=== PATIENT | male | born 1970 | race Caucasian/White ===

== ENCOUNTER 2016-05-06 | Emergency (ER) | payer SELFPAY ==
--- NOTE | 2016-05-06 18:08 | ED ---
General Adult HPI - General Chief complaint: Dental/Oral Stated complaint: Dental pain Time Seen by Provider: 05/06/16 17:50 Source: patient, RN notes reviewed Mode of arrival: ambulatory Limitations: no limitations - History of Present Illness Initial comments: This is a 46-year-old male presents with left-sided dental pain 2 days. Patient states he had mild swelling yesterday but this has greatly increased today. Patient denies any fever or chills. Patient denies noticing any purulent drainage or foul odor. Patient states he does have a bad taste in his mouth. Patient states he called his dentist but they were unable to get him in until tomorrow. Patient also complains of otalgia. Patient denies any nausea/ vomiting or diarrhea. Patient denies any recent shortness breath, chest pain, abdominal pain, back pain, numbness, tingling, hematuria, headache, or visual changes, or any other complaints. - Related Data Previous Rx's Medication Instructions Recorded Amoxicillin 1,000 mg PO Q8H 7 Days 05/06/16 Amoxicillin 500 mg PO Q12HR 7 Days 05/06/16 Allergies Allergy/AdvReac Type Severity Reaction Status Date / Time codeine Allergy Unknown Verified 05/06/16 17:40 Review of Systems ROS Statement: Those systems with pertinent positive or pertinent negative responses have been documented in the HPI. ROS Other: All systems not noted in ROS Statement are negative. Past Medical History Past Medical History: CVA/TIA History of Any Multi-Drug Resistant Organisms: None Reported Past Surgical History: Orthopedic Surgery Past Psychological History: No Psychological Hx Reported Smoking Status: Current every day smoker Past Alcohol Use History: None Reported Past Drug Use History: None Reported General Exam - General Exam Comments Initial Comments: General: The patient is awake and alert, in no distress, and does not appear acutely ill. Eye: Pupils are equal, round and reactive to light, extra-ocular movements are intact. No nystagmus. There is normal conjunctiva bilaterally. No signs of icterus. Ears: TMs are erythematous and bulging bilaterally. No external ear canals. Nose: Nasal turbinates pink and moist. Mouth and throat: There are multiple areas of tooth decay especially to teeth # 18-21 approximately. There is white purulent drainage from this area along with localized erythema. Patient has external facial swelling along the left lower jawline with mild erythema and tenderness to palpation. There are moist mucous membranes and no oral lesions. Neck: Submandibular and anterior cervical chain lymphadenopathy present and tender. The neck is supple, there is no JVD. Cardiovascular: There is a regular rate and rhythm. No murmur, rub or gallop is appreciated. Respiratory: Lungs are clear to auscultation, respirations are non-labored, breath sounds are equal. No wheezes, stridor, rales, or rhonchi. Musculoskeletal: Normal ROM, no tenderness. Strength 5/5. Sensation intact. Radial pulses equal bilaterally 2+. Neurological: A&O x 3. CN II-XII intact, There are no obvious motor or sensory deficits. Coordination appears grossly intact. Speech is normal. Skin: External facial swelling to the lower jawline on the left side. Skin is warm and dry and no rashes or lesions are noted. Psychiatric: Cooperative, appropriate mood & affect, normal judgment. Limitations: no limitations Course Vital Signs 05/06/16 05/06/16 17:40 18:27 Temperature 98.2 F 97.1 F L Pulse Rate 108 H 98 Respiratory 20 16 Rate Blood Pressure 114/75 125/81 O2 Sat by Pulse 98 99 Oximetry Medical Decision Making - Medical Decision Making This is a 46-year-old male with left-sided pain 2 days. On physical exam there are multiple areas of tooth decay especially to teeth #18-21 approximately. There is white purulent drainage from this area along with localized erythema. Patient has external facial swelling along the left lower jawline with mild erythema and tenderness to palpation. There are moist mucous membranes and no oral lesions. TMs are bulging and erythematous bilaterally. Discussed that patient will be started on a course of antibiotics. Discussed that patient could receive a prescription for [place] but patient refused this stating he would like to use Tylenol and Motrin. Discussed that patient should follow-up with his dentist as soon as possible. Discussed return parameters. Patient is afebrile in the EC. Discussed that patient should follow up with PCP in one to 2 days or return to the EC for any worsening symptoms or for any further concerns. Patient was receptive to this plan and patient will be discharged home. I discussed his case with attending physician Dr. Wilkinson who also examined the patient and agrees the plan as stated above. Disposition Clinical Impression: Dental abscess, Otitis media Disposition: HOME SELF-CARE Condition: Good Instructions: Dental Abscess (ED) Additional Instructions: Please finish entire course of antibiotics. Please use [id number] Tylenol and Motrin as needed for any pain. Please follow-up with your dentist as soon as possible. Please follow-up with PCP in one to 2 days or return to the EC for any worsening symptoms or for any further concerns. Prescriptions: Amoxicillin 500 mg PO Q12HR 7 Days Amoxicillin 1,000 mg PO Q8H 7 Days Referrals: None,Stated [Primary Care Provider] - 1-2 days Time of Disposition: 19:02
== END 2016-05-06 19:10 | disposition home or self-care (01) ==
CPT/HCPCS: 99282

== ENCOUNTER 2016-08-06 18:45 | Emergency (ER) | payer SELFPAY ==
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
[2016-08-06 20:37] VITALS: BP 138/78; PULSE 87; RESP 18; TEMP 98
== END 2016-08-06 20:36 | disposition home or self-care (01) ==
LOC: EC 18:45
DX: R42 Dizziness and giddiness (principal); R11.0 Nausea; F17.200 Nicotine dependence, unspecified, uncomplicated; Z88.5 Allergy status to narcotic agent; V89.2XXA Person injured in unspecified motor-vehicle accident, traffic, initial encounter
CPT/HCPCS: 70450; 93005; 99284

== ENCOUNTER 2017-01-28 18:38 | Emergency (ER) | payer SELFPAY ==
[2017-01-28 19:11] VITALS: BP 115/72; PULSE 90; RESP 20; TEMP 98.1
--- NOTE | 2017-01-28 20:04 | ED ---
General Adult HPI - General Chief complaint: Upper Respiratory Infection Stated complaint: COUGH X 4 DAYS Time Seen by Provider: 01/28/17 19:55 Source: patient, RN notes reviewed Mode of arrival: ambulatory Limitations: no limitations - History of Present Illness Initial comments: Patient 46-year-old male who presents emergency room today with a chief complaint of cough congestion over the last 5 days. Denies any sputum production. Patient denies any other complaints at this time. Patient denies any recent fever, chills, shortness of breath, chest pain, back pain, abdominal pain, nausea or vomiting, numbness or tingling, dysuria or hematuria, constipation or diarrhea, headaches or visual changes, or any other complaints. - Related Data Previous Rx's Medication Instructions Recorded Albuterol Inhaler [Ventolin Hfa 1 - 2 puff INHALATION Q4-6H PRN #1 01/28/17 Inhaler] inhaler Azithromycin [Zithromax Z-pack] 0 mg PO DIRECTED #6 tab 01/28/17 predniSONE 60 mg PO DAILY 5 Days 01/28/17 Allergies Allergy/AdvReac Type Severity Reaction Status Date / Time codeine AdvReac Headache Verified 01/28/17 19:11 Review of Systems ROS Statement: Those systems with pertinent positive or pertinent negative responses have been documented in the HPI. ROS Other: All systems not noted in ROS Statement are negative. Past Medical History Past Medical History: CVA/TIA History of Any Multi-Drug Resistant Organisms: None Reported Past Surgical History: Orthopedic Surgery Past Psychological History: No Psychological Hx Reported Smoking Status: Current every day smoker Past Alcohol Use History: None Reported Past Drug Use History: None Reported General Exam - General Exam Comments Initial Comments: General: The patient is awake and alert, in no distress, and does not appear acutely ill. Eye: Pupils are equal, round and reactive to light, extra-ocular movements are intact. No nystagmus. There is normal conjunctiva bilaterally. No signs of icterus. Ears, nose, mouth and throat: There are moist mucous membranes and no oral lesions. Neck: The neck is supple, there is no tenderness or JVD. Cardiovascular: There is a regular rate and rhythm. No murmur, rub or gallop is appreciated. Respiratory: Lungs are clear to auscultation, respirations are non-labored, breath sounds are equal. No wheezes, stridor, rales, or rhonchi. Musculoskeletal: Normal ROM, no tenderness. Strength 5/5. Sensation intact. Pulses equal bilaterally 2+. Neurological: A&O x 3. CN II-XII intact, There are no obvious motor or sensory deficits. Coordination appears grossly intact. Speech is normal. Skin: Skin is warm and dry and no rashes or lesions are noted. Psychiatric: Cooperative, appropriate mood & affect, normal judgment. Limitations: no limitations Course Vital Signs 01/28/17 19:10 Temperature 98.1 F Pulse Rate 90 Respiratory 20 Rate Blood Pressure 115/72 O2 Sat by Pulse 98 Oximetry Medical Decision Making - Medical Decision Making Chest x-ray negative shows no signs of pneumonia. Patient will be treated for bronchitis infection. Disposition Clinical Impression: Acute bronchitis Disposition: HOME SELF-CARE Condition: Good Instructions: Acute Bronchitis (ED) Additional Instructions: Please use medication as discussed. Please follow-up with family doctor in the next 2 days of symptoms have not improved. Please return to emergency room if the symptoms increase or worsen or for any other concerns. Prescriptions: Albuterol Inhaler [Ventolin Hfa Inhaler] 1 - 2 puff INHALATION Q4-6H PRN #1 inhaler PRN Reason: Cough Azithromycin [Zithromax Z-pack] 0 mg PO DIRECTED #6 tab predniSONE 60 mg PO DAILY 5 Days Referrals: None,Stated [Primary Care Provider] - 1-2 days Karen Tate MD [REFERRING] - 1-2 days Time of Disposition: 20:34
--- NOTE | 2017-01-28 20:22 | XR ---
EXAMINATION TYPE: XR chest 2V DATE OF EXAM: 01/28/2017 COMPARISON: 07/18/08 HISTORY: Chest pain TECHNIQUE: Frontal and lateral views of the chest are obtained. FINDINGS: There is no focal air space opacity. No evidence for pneumothorax. No pleural effusion. The cardiac silhouette size is within normal limits. The osseous structures are grossly intact. IMPRESSION: 1. No acute cardiopulmonary process.
== END 2017-01-28 20:51 | disposition home or self-care (01) ==
LOC: EC 18:38
DX: J20.9 Acute bronchitis, unspecified (principal); F17.200 Nicotine dependence, unspecified, uncomplicated; Z88.5 Allergy status to narcotic agent
CPT/HCPCS: 71020; 99283

== ENCOUNTER 2018-12-28 18:36 | Emergency (ER) | payer OTHER ==
[2018-12-28 18:42] VITALS: TEMP 98.6
[2018-12-28 20:30] LABS: Appearance,Urine Clear (Clear); Bilirubin,Urine Negative (Negative); Blood,Urine Negative (Negative); Color,Urine Yellow; Glucose,Urine (UA) Negative (Negative); Ketones,Urine Negative (Negative); Leukocyte Esterase,Urine Small (Negative); Mucus,Urine Moderate /hpf; Nitrite,Urine Negative (Negative); Protein,Urine Trace (Negative); RBC,Urine <1 /hpf (0-5); Specific Gravity,Urine 1.031 (1.001-1.035); Squamous Epithelial Cell,Urine <1 /hpf (0-4); WBC,Urine 27 /hpf (0-5)
[2018-12-28 20:35] LABS: Basophils # (A) 0.1 k/uL (0-0.2); Basophils % (A) 1 %; Eosinophils # (A) 0.3 k/uL (0-0.7); Eosinophils % (A) 2 %; HCT 45.3 % (39.0-53.0); HGB 15.8 gm/dL (13.0-17.5); Lymphocytes # (A) 2.2 k/uL (1.0-4.8); Lymphocytes % (A) 15 %; MCH 32.5 pg (25.0-35.0); MCV 92.8 fL (80.0-100.0); Mean Platelet Volume 7.3; Monocytes # (A) 1.2 k/uL (0-1.0); Monocytes % (A) 8 %; Neutrophils # (A) 10.7 k/uL (1.3-7.7); Neutrophils % (A) 74 %; Platelet Count 299 k/uL (150-450); RBC 4.88 m/uL (4.30-5.90); RDW 14.4 % (11.5-15.5); WBC 14.6 k/uL (3.8-10.6)
[2018-12-28 20:36] LABS: ALT 62 U/L (21-72); AST 37 U/L (17-59); African American GFR (CKD) >90 (>60 ml/min/1.73 sqM); Albumin 3.4 g/dL (3.5-5.0); Alkaline Phosphatase 81 U/L (38-126); Anion Gap 8 mmol/L; Blood Urea Nitrogen 10 mg/dL (9-20); Calcium 8.8 mg/dL (8.4-10.2); Carbon Dioxide 24 mmol/L (22-30); Chloride 107 mmol/L (98-107); Glucose 106 mg/dL (74-99); Potassium 3.8 mmol/L (3.5-5.1); Sodium 139 mmol/L (137-145); Total Bilirubin 0.5 mg/dL (0.2-1.3); Total Protein 5.7 g/dL (6.3-8.2)
--- NOTE | 2018-12-28 20:56 | XR ---
EXAMINATION: XR chest 2V DATE AND TIME: 12/28/2018 8:00 PM CLINICAL INDICATION: PHH; Cough/pain TECHNIQUE: Departmental protocol COMPARISON: 01/28/2017 FINDINGS: The left lower lobe shows partial airlessness in its axial compartment consistent with atelectasis an d/or concurrent bronchopneumonia. This ill-defined string-like added opacity within the left lower lo be was not seen on the prior study. Lungs are otherwise clear bilaterally. The pleural spaces are negative. The cardiac silhouette is not enlarged. The remainder of the mediastinal silhouette is unremarkable. The skeletal structures and soft tissues are negative for acute findings. IMPRESSION: PARTIAL LEFT LOWER LOBE AIRLESSNESS DISCUSSED. Recommend 6 week follow-up PA and lateral chest rad iograph to prove resolution of the findings.
[2018-12-28] MEDS ORDERED: AMOXIC-POT CLAV 875-125MG 1 EACH TAB PO STA (21:41)
--- NOTE | 2018-12-28 21:45 | ED ---
URI HPI - General Chief Complaint: Upper Respiratory Infection Stated Complaint: Cough,yellow eyes Time Seen by Provider: 12/28/18 19:07 Source: patient, family Mode of arrival: ambulatory Limitations: no limitations - History of Present Illness Initial Comments: The patient is a 48-year-old male presents emergency Department with reported cough for the past week. Significant other is at bedside. Patient reports that he has had a cough with green sputum. Denies any sick contacts or recent travel. Denies any fevers or chills. Does admit to chest wall pain from persistent coughing. He denies a history of COPD or asthma. He has not taken any medications at home for her symptoms. He denies any ear pain or sore throat. No neck pain or stiffness. Denies any chest pain. Does admit to feeling mildly short of breath. No abdominal pain or changes in his bowel or bladder habits. He denies hemoptysis. Significant other does report that the patient's eyes have appeared yellow the past couple of days. No history of liver failure. Patient reports to dark-colored urine. Denies a colored stools. No abdominal distention or bloating. Denies a history of alcohol use. No excessive Tylenol use. No history of similar in the past. There are no other alleviating, precipitating or modifying factors - Related Data Previous Rx's Medication Instructions Recorded Amoxicillin/Potassium Clav 1 tab PO Q12HR #20 tab 12/28/18 [Augmentin 875-125 Tablet] Allergies Allergy/AdvReac Type Severity Reaction Status Date / Time codeine AdvReac Headache Verified 12/28/18 19:31 Review of Systems ROS Statement: Those systems with pertinent positive or pertinent negative responses have been documented in the HPI. ROS Other: All systems not noted in ROS Statement are negative. Past Medical History Past Medical History: CVA/TIA History of Any Multi-Drug Resistant Organisms: None Reported Past Surgical History: Orthopedic Surgery Past Psychological History: No Psychological Hx Reported Smoking Status: Current every day smoker Past Alcohol Use History: None Reported Past Drug Use History: None Reported General Exam Limitations: no limitations Course Vital Signs 12/28/18 12/28/18 18:38 22:26 Temperature 98.6 F Pulse Rate 102 H 79 Respiratory 18 16 Rate Blood Pressure 111/74 110/79 O2 Sat by Pulse 97 95 Oximetry Medical Decision Making - Medical Decision Making Upon arrival the patient is placed into room 3. 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 A 12-lead EKG is performed with the patient. They're history of physical exam is performed. Laboratory studies were conducted and the patient was sent for chest x-ray. Review of the lab results revealed a mild leukocytosis. Chest x-ray demonstrates a left lower lobe pneumonia. I did discuss results the patient. I did recommend a DuoNeb breathing treatment however the patient states that he is ALLERGIC to albuterol inhalers. I therefore held off on a nebulizer treatment. I did recommend treatment for community-acquired pneumonia for which patient did agree. He is given a dose of Augmentin in the emergency department. He'll be discharged home with a prescription for Augmentin. He is follow-up with his primary care physician in 2-4 days. If he has any new or worsening symptoms she should return to the emergency room. The patient was in agreement with the treatment plan and he is discharged home in stable condition - Lab Data Result diagrams: 12/28/18 20:11 12/28/18 20:11 Lab Results 12/28/18 12/28/18 12/28/18 Range/Units 20:11 20:11 20:11 WBC 14.6 H (3.8-10.6) k/uL RBC 4.88 (4.30-5.90) m/uL Hgb 15.8 (13.0-17.5) gm/dL Hct 45.3 (39.0-53.0) % MCV 92.8 (80.0-100.0) fL MCH 32.5 (25.0-35.0) pg MCHC 35.0 (31.0-37.0) g/dL RDW 14.4 (11.5-15.5) % Plt Count 299 (150-450) k/uL Neutrophils % 74 % Lymphocytes % 15 % Monocytes % 8 % Eosinophils % 2 % Basophils % 1 % Neutrophils # 10.7 H (1.3-7.7) k/uL Lymphocytes # 2.2 (1.0-4.8) k/uL Monocytes # 1.2 H (0-1.0) k/uL Eosinophils # 0.3 (0-0.7) k/uL Basophils # 0.1 (0-0.2) k/uL Sodium 139 (137-145) mmol/L Potassium 3.8 (3.5-5.1) mmol/L Chloride 107 (98-107) mmol/L Carbon Dioxide 24 (22-30) mmol/L Anion Gap 8 mmol/L BUN 10 (9-20) mg/dL Creatinine 0.94 (0.66-1.25) mg/dL Est GFR (CKD-EPI)AfAm >90 (>60 ml/min/1.73 sqM) Est GFR (CKD-EPI)NonAf >90 (>60 ml/min/1.73 sqM) Glucose 106 H (74-99) mg/dL Plasma Lactic Acid Cosme 1.0 (0.7-2.0) mmol/L Calcium 8.8 (8.4-10.2) mg/dL Total Bilirubin 0.5 (0.2-1.3) mg/dL AST 37 (17-59) U/L ALT 62 (21-72) U/L Alkaline Phosphatase 81 (38-126) U/L Total Protein 5.7 L (6.3-8.2) g/dL Albumin 3.4 L (3.5-5.0) g/dL Lipase 64 (23-300) U/L Urine Color Urine Appearance (Clear) Urine pH (5.0-8.0) Ur Specific [place] (1.001-1.035) Urine Protein (Negative) Urine Glucose (UA) (Negative) Urine Ketones (Negative) Urine Blood (Negative) Urine Nitrite (Negative) Urine Bilirubin (Negative) Urine Urobilinogen (<2.0) mg/dL Ur Leukocyte Esterase (Negative) Urine RBC (0-5) /hpf Urine WBC (0-5) /hpf Ur Squamous Epith Cells (0-4) /hpf Urine Mucus (None) /hpf Influenza Type A RNA (Not Detectd) Influenza Type B (PCR) (Not Detectd) 12/28/18 12/28/18 Range/Units 20:11 20:11 WBC (3.8-10.6) k/uL RBC (4.30-5.90) m/uL Hgb (13.0-17.5) gm/dL Hct (39.0-53.0) % MCV (80.0-100.0) fL MCH (25.0-35.0) pg MCHC (31.0-37.0) g/dL RDW (11.5-15.5) % Plt Count (150-450) k/uL Neutrophils % % Lymphocytes % % Monocytes % % Eosinophils % % Basophils % % Neutrophils # (1.3-7.7) k/uL Lymphocytes # (1.0-4.8) k/uL Monocytes # (0-1.0) k/uL Eosinophils # (0-0.7) k/uL Basophils # (0-0.2) k/uL Sodium (137-145) mmol/L Potassium (3.5-5.1) mmol/L Chloride (98-107) mmol/L Carbon Dioxide (22-30) mmol/L Anion Gap mmol/L BUN (9-20) mg/dL Creatinine (0.66-1.25) mg/dL Est GFR (CKD-EPI)AfAm (>60 ml/min/1.73 sqM) Est GFR (CKD-EPI)NonAf (>60 ml/min/1.73 sqM) Glucose (74-99) mg/dL Plasma Lactic Acid Cosme (0.7-2.0) mmol/L Calcium (8.4-10.2) mg/dL Total Bilirubin (0.2-1.3) mg/dL AST (17-59) U/L ALT (21-72) U/L Alkaline Phosphatase (38-126) U/L Total Protein (6.3-8.2) g/dL Albumin (3.5-5.0) g/dL Lipase (23-300) U/L Urine Color Yellow Urine Appearance Clear (Clear) Urine pH 6.0 (5.0-8.0) Ur Specific [place] 1.031 (1.001-1.035) Urine Protein Trace H (Negative) Urine Glucose (UA) Negative (Negative) Urine Ketones Negative (Negative) Urine Blood Negative (Negative) Urine Nitrite Negative (Negative) Urine Bilirubin Negative (Negative) Urine Urobilinogen 8.0 (<2.0) mg/dL Ur Leukocyte Esterase Small H (Negative) Urine RBC <1 (0-5) /hpf Urine WBC 27 H (0-5) /hpf Ur Squamous Epith Cells <1 (0-4) /hpf Urine Mucus Moderate H (None) /hpf Influenza Type A RNA Not Detected (Not Detectd) Influenza Type B (PCR) Not Detected (Not Detectd) Disposition Clinical Impression: Pneumonia Disposition: HOME SELF-CARE Condition: Stable Instructions (If sedation given, give patient instructions): Bacterial Pneumonia (ED) Prescriptions: Amoxicillin/Potassium Clav [Augmentin 875-125 Tablet] 1 tab PO Q12HR #20 tab Is patient prescribed a controlled substance at d/c from ED?: No Referrals: None,Stated [Primary Care Provider] - 1-2 days Time of Disposition: 21:45
[2018-12-28 22:26] VITALS: BP 110/79; PULSE 79; RESP 16
== END 2018-12-28 22:44 | disposition home or self-care (01) ==
LOC: EC 18:36
DX: J18.1 Lobar pneumonia, unspecified organism (principal); F17.200 Nicotine dependence, unspecified, uncomplicated; Z88.5 Allergy status to narcotic agent; Z86.73 Personal history of transient ischemic attack (TIA), and cerebral infarction without residual deficits
CPT/HCPCS: 36415; 71046; 80053; 81001; 83605; 83690; 85025; 87502; 99283

== ENCOUNTER 2019-05-10 06:54 | Day surgery (SDC) | payer BC ==
[2019-05-06 11:30] VITALS: BMI 25.4
[~2019-05-10 06:54] MED LIST: LACTATED RINGERS 1,000 ML IV SCH; LIDOCAINE 1% 20 ML VIAL (10MG/ML) FOR IV START INTRADERMA PRN
[2019-05-10] MEDS ORDERED: LACTATED RINGERS 1,000 ML IV ONE (07:09)
[2019-05-10 07:19] VITALS: TEMP 98.6
[2019-05-10] MEDS ORDERED: PROPOFOL 10 MG/ML 20 ML VIAL IV ONE (07:54)
--- NOTE | 2019-05-10 07:57 | P.GSHP ---
History of Present Illness H&P Date: 05/10/19 Chief Complaint: Screening colonoscopy This a 49-year-old male who presents today for screening colonoscopy. Patient denies any significant GI complaints. Past Medical History Past Medical History: CVA/TIA History of Any Multi-Drug Resistant Organisms: None Reported Past Surgical History: Orthopedic Surgery, Tonsillectomy Additional Past Surgical History / Comment(s): rt ankle surgery replaced with plastic ankle Past Anesthesia/Blood Transfusion Reactions: No Reported Reaction, Family History of Problems w/ Anesthesia Additional Past Anesthesia/Blood Transfusion Reaction / Comment(s): mother has difficulty breaking down enzymes with anesthesia Past Psychological History: No Psychological Hx Reported Smoking Status: Current every day smoker Past Alcohol Use History: Rare Additional Past Alcohol Use History / Comment(s): smoker since 22 years old smokes 1 ppd Past Drug Use History: None Reported - Past Family History Father Family Medical History: Cancer Mother Family Medical History: Diabetes Mellitus Brother(s) Family Medical History: Diabetes Mellitus, Deep Vein Thrombosis (DVT) Medications and Allergies Home Medications Medication Instructions Recorded Confirmed Type No Known Home Medications 05/06/19 05/06/19 History Allergies Allergy/AdvReac Type Severity Reaction Status Date / Time codeine AdvReac Headache Verified 05/10/19 07:19 Surgical - Exam Vital Signs Temp Pulse Resp BP Pulse Ox 98.6 F 87 14 122/78 98 05/10/19 07:16 05/10/19 07:16 05/10/19 07:16 05/10/19 07:16 05/10/19 07:16 - General well developed, well nourished, no distress - Eyes PERRL - ENT normal pinna - Neck no masses - Respiratory normal expansion - Cardiovascular Rhythm: regular - Abdomen Abdomen: soft, non tender Assessment and Plan Assessment: We'll perform screening colonoscopy.
[2019-05-10 08:25] VITALS: BP 106/71; PULSE 74; RESP 18
--- NOTE | 2019-05-10 09:47 | P.OP ---
Date of Procedure: 05/10/19 Preoperative Diagnosis: Screening colonoscopy Postoperative Diagnosis: Normal colon Procedure(s) Performed: Colonoscopy Anesthesia: MAC Surgeon: Stanley Azar Pathology: none sent Condition: stable Disposition: PACU Description of Procedure: PROCEDURE: The patient was placed on the endoscopy table in the lateral position. Digital rectal examination was performed which revealed no abnormalities. The prostate was symmetrical without nodules. Flexible colonoscope was then placed in the patient's anus and passed throughout the entire colon. The ileocecal valve was visualized. The cecum, ascending, transverse, descending and sigmoid colon were normal. The rectum was normal as well. There were no masses, polyps or diverticula noted in the entire colon. SUMMARY OF FINDINGS: Normal colonoscopy.
== END 2019-05-10 08:43 | disposition home or self-care (01) ==
LOC: ORWHC2ENDO 06:54
PROVIDERS: ATTEND Surgery
DX: Z12.11 Encounter for screening for malignant neoplasm of colon (principal); F17.210 Nicotine dependence, cigarettes, uncomplicated; Z86.73 Personal history of transient ischemic attack (TIA), and cerebral infarction without residual deficits; Z88.5 Allergy status to narcotic agent; Z98.890 Other specified postprocedural states; Z96.661 Presence of right artificial ankle joint; Z80.9 Family history of malignant neoplasm, unspecified; Z83.3 Family history of diabetes mellitus; Z82.49 Family history of ischemic heart disease and other diseases of the circulatory system
CPT/HCPCS: J2704; G0121

== ENCOUNTER 2023-01-07 20:30 | Emergency (ER) | payer BC ==
[2023-01-07] MEDS ORDERED: KETOROLAC 15 MG/ML 1 ML VIAL IVP STA (22:47)
--- NOTE | 2023-01-07 23:09 | ED ---
General Adult HPI - General Chief complaint: Extremity Problem,Nontraumatic Stated complaint: left shoulder pain Time Seen by Provider: 01/07/23 22:35 Source: patient Mode of arrival: ambulatory Limitations: no limitations - History of Present Illness Initial comments: 52-year-old male presenting with chief complaint of left shoulder pain. Patient states that the pain is sharp and is located mainly in the anterior portion of the shoulder. States that he worked last night when he woke up this afternoon the pain was present. He denies any known injury or trauma. He does work in construction. States that he is having some numbness radiating down to his fingers. No pain in the neck. No chest pain or difficulty breathing. He has limited range of motion, pain is worse with movement. No at home analgesia taken. Patient smokes about a pack of cigarettes per day. - Related Data Home Medications Medication Instructions Recorded Confirmed No Known Home Medications 05/06/19 05/06/19 Allergies Allergy/AdvReac Type Severity Reaction Status Date / Time codeine AdvReac Headache Verified 05/10/19 07:19 Review of Systems ROS Statement: Those systems with pertinent positive or pertinent negative responses have been documented in the HPI. ROS Other: All systems not noted in ROS Statement are negative. Past Medical History Past Medical History: CVA/TIA History of Any Multi-Drug Resistant Organisms: None Reported Past Surgical History: Orthopedic Surgery, Tonsillectomy Additional Past Surgical History / Comment(s): rt ankle surgery replaced with plastic ankle Past Anesthesia/Blood Transfusion Reactions: No Reported Reaction, Family History of Problems w/ Anesthesia Additional Past Anesthesia/Blood Transfusion Reaction / Comment(s): mother has difficulty breaking down enzymes with anesthesia Past Psychological History: No Psychological Hx Reported Past Alcohol Use History: Rare Past Drug Use History: None Reported - Past Family History Father Family Medical History: Cancer Mother Family Medical History: Diabetes Mellitus Brother(s) Family Medical History: Diabetes Mellitus, Deep Vein Thrombosis (DVT) General Exam Limitations: no limitations General appearance: alert, in no apparent distress Head exam: Present: atraumatic, normocephalic, normal inspection Eye exam: Present: normal appearance, EOMI. Absent: scleral icterus, periorbital swelling Neck exam: Present: normal inspection, full ROM Respiratory exam: Present: normal lung sounds bilaterally. Absent: respiratory distress, wheezes, rales, rhonchi, stridor Cardiovascular Exam: Present: regular rate, normal rhythm, normal heart sounds. Absent: systolic murmur, diastolic murmur, rubs, gallop, clicks Left Shoulder Exam: Present: normal inspection, tenderness. Absent: full ROM Vascular: Absent: vascular compromise Neurological exam: Present: alert, oriented X3, CN II-XII intact Psychiatric exam: Present: normal affect, normal mood Skin exam: Present: warm, dry, intact, normal color. Absent: rash Course Vital Signs 01/07/23 01/08/23 20:40 00:34 Temperature 97.6 F 97.9 F Pulse Rate 74 88 Respiratory 18 18 Rate Blood Pressure 122/76 122/77 O2 Sat by Pulse 99 98 Oximetry EKG Findings - EKG Comments: EKG Findings:: Sinus rhythm ventricular rate 68. PA interval 163. QRS 101. QT 371. QTc 388. Normal axis. Medical Decision Making - Medical Decision Making Was pt. sent in by a medical professional or institution (, PA, WOOD HEEL CEMENTER, urgent care, hospital, or jail...) When possible be specific @ -No Did you speak to anyone other than the patient for history (EMS, parent, family, police, friend...)? What history was obtained from this source @ -No Did you review nursing and triage notes (agree or disagree)? Why? @ -I reviewed and agree with nursing and triage notes Were old charts reviewed (outside hosp., previous admission, EMS record, old EKG, old radiological studies, urgent care reports/EKG's, jail records)? Report findings @ -No old charts were reviewed Differential Diagnosis (chest pain, altered mental status, abdominal pain women, abdominal pain men, vaginal bleeding, weakness, fever, dyspnea, syncope, headache, dizziness, GI bleed, back pain, seizure, CVA, palpatations, mental health, musculoskeletal)? @ -Differential Musculoskeletal Muscular strain, contusion, ligament sprain, fracture, arthritis, septic arthritis, bursitis, cellulitis, muscle spasm, nerve compression, DVT, arterial occlusion, herpes zoster, electrolyte abnormality, tumor.... This is not meant to be in all inclusive list EKG interpreted by me (3pts min.). @ -As above X-rays interpreted by me (1pt min.). @ -Negative x-rays of the chest and shoulder CT interpreted by me (1pt min.). @ -None done U/S interpreted by me (1pt. min.). @ -None done What testing was considered but not performed or refused? (CT, X-rays, U/S, labs)? Why? @ -None What meds were considered but not given or refused? Why? @ -None Did you discuss the management of the patient with other professionals (professionals i.e. [employer], PA, WOOD HEEL CEMENTER, lab, RT, psych nurse, healthcare social worker, project control officer, teacher, campus security officer, top case assembler)? Give summary @ -No Was smoking cessation discussed for >3mins.? @ -No Was critical care preformed (if so, how long)? @ -No Were there social determinants of health that impacted care today? How? (Homelessness, low income, unemployed, alcoholism, drug addiction, transportation, low edu. Level, literacy, decrease access to med. care, penitentiary, rehab)? @ -No Was there de-escalation of care discussed even if they declined (Discuss DNR or withdrawal of care, Hospice)? DNR status @ -No What co-morbidities impacted this encounter? (DM, HTN, Smoking, COPD, CAD, Cancer, CVA, ARF, Chemo, Hep., AIDS, mental health diagnosis, sleep apnea, morbid obesity)? @ -None Was patient admitted / discharged? Hospital course, mention meds given and route, prescriptions, significant lab abnormalities, going to OR and other pertinent info. @ -52-year-old male presenting with chief complaint of left shoulder pain that started today. No known injury or trauma, however he does work a very physical job. Pain is worse with range of motion and reproducible on palpation. Lab work shows no leukocytosis or anemia. Negative troponin. EKG shows no ischemic changes. Negative x-ray of the chest and shoulder. On reassessment patient is resting comfortably. He is educated on today's findings and on supportive management at home.Follow-up with PCP. Report back to ER with any new or worsening symptoms. Discussed return parameters and answered all questions. Patient conveyed verbal understanding and agreed to the plan. I discussed this case in detail with my attending Dr. Red Undiagnosed new problem with uncertain prognosis? @ -No Drug Therapy requiring intensive monitoring for toxicity (Heparin, Nitro, Insulin, Cardizem)? @ -No Were any procedures done? @ -No Diagnosis/symptom? @ -Shoulder pain Acute, or Chronic, or Acute on Chronic? @ -Acute Uncomplicated (without systemic symptoms) or Complicated (systemic symptoms)? @ -Uncomplicated Side effects of treatment? @ -No Exacerbation, Progression, or Severe Exacerbation? @ -No Poses a threat to life or bodily function? How? (Chest pain, USA, CA, pneumonia, PE, COPD, DKA, ARF, appy, cholecystitis, CVA, Diverticulitis, Homicidal, Suicidal, threat to staff... and all critical care pts) @ -No - Lab Data Result diagrams: 01/07/23 23:07 01/07/23 23:07 Lab Results 01/07/23 01/07/23 01/07/23 Range/Units 23:07 23:07 23:07 WBC 7.9 (3.8-10.6) k/uL RBC 4.53 (4.30-5.90) m/uL Hgb 15.0 (13.0-17.5) gm/dL Hct 43.7 (39.0-53.0) % MCV 96.5 (80.0-100.0) fL MCH 33.2 (25.0-35.0) pg MCHC 34.4 (31.0-37.0) g/dL RDW 12.7 (11.5-15.5) % Plt Count 243 (150-450) k/uL MPV 8.3 Neutrophils % 50 % Lymphocytes % 34 % Monocytes % 9 % Eosinophils % 3 % Basophils % 1 % Neutrophils # 4.0 (1.3-7.7) k/uL Lymphocytes # 2.7 (1.0-4.8) k/uL Monocytes # 0.7 (0-1.0) k/uL Eosinophils # 0.3 (0-0.7) k/uL Basophils # 0.1 (0-0.2) k/uL PT (9.0-12.0) sec INR (<1.2) APTT (22.0-30.0) sec Sodium 137 (137-145) mmol/L Potassium 4.6 (3.5-5.1) mmol/L Chloride 107 (98-107) mmol/L Carbon Dioxide 25 (22-30) mmol/L Anion Gap 5 mmol/L BUN 9 (9-20) mg/dL Creatinine 0.90 (0.66-1.25) mg/dL Est GFR (CKD-EPI)AfAm >90 (>60 ml/min/1.73 sqM) Est GFR (CKD-EPI)NonAf >90 (>60 ml/min/1.73 sqM) Glucose 120 H (74-99) mg/dL Calcium 9.2 (8.4-10.2) mg/dL Total Bilirubin 0.3 (0.2-1.3) mg/dL AST 32 (17-59) U/L ALT 35 (4-49) U/L Alkaline Phosphatase 86 (38-126) U/L Troponin I <0.012 (0.000-0.034) ng/mL Total Protein 6.3 (6.3-8.2) g/dL Albumin 3.8 (3.5-5.0) g/dL 01/07/23 Range/Units 23:07 WBC (3.8-10.6) k/uL RBC (4.30-5.90) m/uL Hgb (13.0-17.5) gm/dL Hct (39.0-53.0) % MCV (80.0-100.0) fL MCH (25.0-35.0) pg MCHC (31.0-37.0) g/dL RDW (11.5-15.5) % Plt Count (150-450) k/uL MPV Neutrophils % % Lymphocytes % % Monocytes % % Eosinophils % % Basophils % % Neutrophils # (1.3-7.7) k/uL Lymphocytes # (1.0-4.8) k/uL Monocytes # (0-1.0) k/uL Eosinophils # (0-0.7) k/uL Basophils # (0-0.2) k/uL PT 9.7 (9.0-12.0) sec INR 0.9 (<1.2) APTT 24.1 (22.0-30.0) sec Sodium (137-145) mmol/L Potassium (3.5-5.1) mmol/L Chloride (98-107) mmol/L Carbon Dioxide (22-30) mmol/L Anion Gap mmol/L BUN (9-20) mg/dL Creatinine (0.66-1.25) mg/dL Est GFR (CKD-EPI)AfAm (>60 ml/min/1.73 sqM) Est GFR (CKD-EPI)NonAf (>60 ml/min/1.73 sqM) Glucose (74-99) mg/dL Calcium (8.4-10.2) mg/dL Total Bilirubin (0.2-1.3) mg/dL AST (17-59) U/L ALT (4-49) U/L Alkaline Phosphatase (38-126) U/L Troponin I (0.000-0.034) ng/mL Total Protein (6.3-8.2) g/dL Albumin (3.5-5.0) g/dL Disposition Clinical Impression: Shoulder pain Disposition: HOME SELF-CARE Condition: Good Instructions (If sedation given, give patient instructions): Shoulder Pain (ED) Additional Instructions: Follow-up with PCP. Report back to ER if any new or worsening symptoms. Take Motrin and Tylenol as needed for pain control. Is patient prescribed a controlled substance at d/c from ED?: No Referrals: None,Stated [Primary Care Provider] - 1-2 days Time of Disposition: 00:12
[2023-01-07 23:26] LABS: Basophils # (A) 0.1 k/uL (0-0.2); Basophils % (A) 1 %; Eosinophils # (A) 0.3 k/uL (0-0.7); Eosinophils % (A) 3 %; HCT 43.7 % (39.0-53.0); Lymphocytes # (A) 2.7 k/uL (1.0-4.8); Lymphocytes % (A) 34 %; MCH 33.2 pg (25.0-35.0); MCHC 34.4 g/dL (31.0-37.0); MCV 96.5 fL (80.0-100.0); Mean Platelet Volume 8.3; Monocytes # (A) 0.7 k/uL (0-1.0); Monocytes % (A) 9 %; Neutrophils % (A) 50 %; Platelet Count 243 k/uL (150-450); RBC 4.53 m/uL (4.30-5.90); RDW 12.7 % (11.5-15.5); WBC 7.9 k/uL (3.8-10.6)
[2023-01-07 23:34] LABS: INR 0.9 (<1.2); Partial Thromboplastin Time 24.1 sec (22.0-30.0); Prothrombin Time 9.7 sec (9.0-12.0)
[2023-01-07 23:35] LABS: ALT 35 U/L (4-49); AST 32 U/L (17-59); African American GFR (CKD) >90 (>60 ml/min/1.73 sqM); Albumin 3.8 g/dL (3.5-5.0); Alkaline Phosphatase 86 U/L (38-126); Anion Gap 5 mmol/L; Blood Urea Nitrogen 9 mg/dL (9-20); Calcium 9.2 mg/dL (8.4-10.2); Carbon Dioxide 25 mmol/L (22-30); Chloride 107 mmol/L (98-107); Glucose 120 mg/dL (74-99); Non-African American GFR(CKD) >90 (>60 ml/min/1.73 sqM); Potassium 4.6 mmol/L (3.5-5.1); Sodium 137 mmol/L (137-145); Total Bilirubin 0.3 mg/dL (0.2-1.3); Total Protein 6.3 g/dL (6.3-8.2)
--- NOTE | 2023-01-07 23:38 | XR ---
EXAM: XR Left Shoulder Complete, 2 or More Views CLINICAL HISTORY: ITS.REASON XR Reason: L shoulder pain TECHNIQUE: Two or more views of the left shoulder. COMPARISON: No relevant prior studies available. FINDINGS: Bones/joints: Unremarkable. No acute fracture. No dislocation. Soft tissues: Unremarkable. IMPRESSION: Normal left shoulder x-rays.
--- NOTE | 2023-01-07 23:38 | XR ---
EXAM: XR Chest, 2 Views CLINICAL HISTORY: ITS.REASON XR Reason: L shoulder pain TECHNIQUE: Frontal and lateral views of the chest. COMPARISON: No relevant prior studies available. FINDINGS: Lungs: Unremarkable. No consolidation. Pleural space: Unremarkable. No pneumothorax. Heart: Unremarkable. No cardiomegaly. Mediastinum: Unremarkable. Bones/joints: Unremarkable. IMPRESSION: Normal chest x-rays.
[2023-01-08 15:48] VITALS: BP 122/77; PULSE 88; RESP 18; TEMP 97.9
== END 2023-01-08 00:34 | disposition home or self-care (01) ==
LOC: EC 20:30
DX: M25.512 Pain in left shoulder (principal); Z88.5 Allergy status to narcotic agent; Z86.73 Personal history of transient ischemic attack (TIA), and cerebral infarction without residual deficits
CPT/HCPCS: 36415; 93005; 80053; 84484; 85025; 85610; 85730; 73030; 71046; 99284; 96374; J1885